=== PATIENT | female | born 1985 | race Caucasian/White ===

== ENCOUNTER 2017-02-17 09:06 | Emergency (ER) | payer BC ==
[~2017-02-17] VITALS: Ht 165.1 cm; Wt 54.0 kg
[2017-02-17 09:16] VITALS: BP 134/73
--- NOTE | 2017-02-17 09:20 | NUR ---
PT PRESENTS TO ER FOR EVALUATION OF VAGINAL BLEEDING DURING X3 DAYS DENIES N/V/D; SKIN IS PINK/WARM/DRY; AAOX4 WITH EVEN AND STEADY GAIT; LUNGS CLEAR BL; HR EVEN AND REGULAR; PT DENIES ANY FEVER, CP, SOB, OR COUGH AT THIS TIME; PATIENT STATES PAIN OF 7/10 AT THIS TIME; VSS; PATIENT POSITIONED FOR COMFORT; HOB ELEVATED; BEDRAILS UP X2; BED DOWN. ER MD MADE AWARE OF PT STATUS.
--- NOTE | 2017-02-17 09:40 | NUR ---
DR. TURCIOS AT BEDSIDE CHECK PT. OFFERED PT PAIN MEDICATION, PT REFUSED.
--- NOTE | 2017-02-17 09:50 | NUR ---
PT STATED PAIN RELIVED.
--- NOTE | 2017-02-17 10:20 | NUR ---
US TECH AT BEDSIDE.
[2017-02-17 10:22] LABS: BASOPHILS # (AUTO) 0.1 K/uL (0.00-0.22); BASOPHILS % (AUTO) 1.2 % (0.0-2.0); EOSINOPHILS # (AUTO) 0.2 K/uL (0-0.4); EOSINOPHILS % (AUTO) 1.6 % (0.0-4.0); HEMATOCRIT 38.2 % (36-48); HEMOGLOBIN 12.9 g/dL (12.0-16.0); LYMPHOCYTES # (AUTO) 1.3 K/uL (2.5-16.5); LYMPHOCYTES % (AUTO) 12.2 % (20.5-51.1); MEAN CORPUSCULAR HEMOGLOBIN 30 pg (27-31); MEAN CORPUSCULAR HGB CONC 34 g/dL (33-37); MEAN CORPUSCULAR VOLUME 89 fL (80-94); MONOCYTES # (AUTO) 0.6 K/uL (0.8-1.0); NEUTROPHILS # (AUTO) 8.3 K/uL (1.8-7.7); PLATELET COUNT (AUTO) 202 K/uL (140-450); RED BLOOD CELL COUNT(AUTO) 4.29 MIL/uL (4.20-5.40); RED CELL DISTRIBUTION WIDTH 12.8 % (11.6-13.7); WHITE BLOOD COUNT (AUTO) 10.5 K/uL (4.8-10.8)
[2017-02-17 10:26] LABS: APPEARANCE,URINE HAZY (CLEAR); BILIRUBIN,URINE NEGATIVE (NEGATIVE); BLOOD, URINE 3+ (NEGATIVE); LEUKOCYTE ESTERASE ,URINE NEGATIVE (NEGATIVE); NITRITE, URINE NEGATIVE (NEGATIVE); UGLUCOSE NEGATIVE (NEGATIVE)
[2017-02-17 10:38] LABS: COLOR,URINE ORANGE (YELLOW)
[2017-02-17 10:50] LABS: POTASSIUM 3.8 mmol/L (3.5-5.1)
[2017-02-17 10:51] LABS: ALBUMIN 3.4 g/dL (3.4-5.0); ANION GAP 10.9 (8-16); CARBON DIOXIDE 29.9 mmol/L (21-32); CREATININE 0.7 mg/dL (0.6-1.3); TOTAL BILIRUBIN 0.4 mg/dL (0.0-1.0)
--- NOTE | 2017-02-17 11:05 | NUR ---
pt awake, alert, and oriented. pt stated no pain at this time.
[2017-02-17 11:11] LABS: RBC,URINE 50-80 /HPF (0-5); WBC,URINE 0-5 (RARE) /HPF (0-5)
--- NOTE | 2017-02-17 12:35 | NUR ---
HAD A CONVERSATION WITH PT REGARDING US REPORT, PT'S AT BEDSIDE.
[2017-02-17 12:55] VITALS: BP 107/77
--- NOTE | 2017-02-17 12:55 | NUR ---
Patient discharged with v/s stable. Written and verbal after care instructions given and explained. Patient verbalized understanding. Ambulatory with steady gait. All questions addressed prior to discharge. Advised to follow up with TAPE TRANSFERRER DR. Wisdom tomorrow.
== END 2017-02-17 12:55 | disposition home or self-care (01) ==
LOC: MED 09:06
DX: O20.0 Threatened abortion (principal); Z3A.12 12 weeks gestation of pregnancy
CPT/HCPCS: 36415; 76801; 80053; 81001; 81025; 83690; 84702; 85025; 86886; 86900; 86901; 99285; Q0092